=== PATIENT | male | born 1965 | race American Indian/Alaskan Native ===

== ENCOUNTER 2025-05-08 11:34 | Emergency (ER) | payer OTHER ==
[~2025-05-08] VITALS: Ht 172.7 cm; Wt 99.8 kg
[2025-05-08] MEDS ORDERED: IBU600 MG PO (12:27)
[2025-05-08] MEDS ORDERED: COLCHICINE0.6 M1 PO (12:27)
[2025-05-08] MEDS ORDERED: HYDROCODON-ACE1 EA11 PO (12:27)
[2025-05-08 12:34] VITALS: BP 144/83
== END 2025-05-08 12:34 | disposition home or self-care (01) ==
LOC: ED 11:34
DX: M10.9 Gout, unspecified (principal)
CPT/HCPCS: 73110; 99283